=== PATIENT | female | born 1985 | race Two or more races ===

== ENCOUNTER 2025-02-14 23:01 | Emergency (ER) | payer MEDICAID, OTHER ==
[~2025-02-14] VITALS: Ht 175.3 cm; Wt 97.2 kg
--- NOTE | 2025-02-14 23:52 | ED.PDOC ---
History of Present Illness HPI Comments 39-year-old, obese female presents with daughter for chief complaint of nausea and vomiting. Patient endorses on sudden and unprovoked onset of symptoms, this afternoon, which has been persisting since. No reported abdominal pain, bloody or bilious vomitus, diarrhea, or further acute symptoms. Significant history for diabetes and DKA. Patient reports on her blood glucose levels being well managed, today. Chief Complaint: Nausea/Vomiting Time Seen by MD: 23:45 Reviewed Notes: Nurses Notes Allergies: Coded Allergies: NO KNOWN ALLERGIES (Unverified , 02/14/25) Home Meds Active Scripts Cefdinir (Cefdinir) 300 Mg Cap, 1 CAP PO BID for 7 Days, #14 CAP Prov:FER WHITMAN MD 02/15/25 Ondansetron HCl (Ondansetron Hydrochloride) 8 Mg Tab, 8 MG PO Q6HP PRN, #30 TAB Prov:FER WHITMAN MD 02/15/25 Information Source: Patient Mode of Arrival: Ambulatory Severity: Moderate Timing: Hours Duration: Since onset Prehospital treatment: None Past Medical History PAST MEDICAL HISTORY: DM Past Medical History (Other): DKA Surgical History: Denies all surgeries 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 Hx Family History Family History: Unknown Social History Smoker: Non-Smoker Alcohol: Denies ETOH Use Drugs: Denies Drug Use Lives In: Home All Other Systems: Reviewed and Negative (Comprehensive review of systems are negative unless otherwise stated in HPI) Physical Exam General Appearance: Mild Distress, Obese HEENT: Normal ENT Inspection, Pharynx Normal, TMs Normal Neck: Full Range of Motion, Non-Tender, Normal, Normal Inspection Respiratory: Chest Non-Tender, Lungs Clear, No Accessory Muscle Use, No Respiratory Distress, Normal Breath Sounds Cardiovascular: No Edema, No JVD, No Murmur, No Gallop, Normal Peripheral Pulses, Regular Rate/Rhythm Breast Exam: Deferred Gastrointestinal: No Organomegaly, Non Tender, No Pulsatile Mass, Normal Bowel Sounds, Soft Genitalia: Deferred Pelvic: Deferred Rectal: Deferred Extremities: No calf tenderness, Normal capillary refill, Normal inspection, Normal range of motion, Non-tender, No pedal edema Musculoskeletal : Apperance: Normal Neurologic: Alert, track dresser II-XII nml as Tested, No Motor Deficits, Normal Affect, Normal Mood, No Sensory Deficits Cerebellar Function: Normal Reflexes: Normal Skin: Dry, Normal Color, Warm Lymphatic: No Adenopathy Was a procedure done? Was a procedure done?: No Differential Dx Considerations may include: Gastritis, gastroenteritis, viral, spoiled food, , dehydration, electrolyte imbalance, among others X-Ray, Labs, Meds, VS Vital Signs Date Time Temp Pulse Resp B/P (MAP) Pulse Ox O2 Delivery O2 Flow Rate FiO2 02/15/25 03:40 98.5 98 18 150/89 (109) 99 98.5 02/15/25 00:26 98.4 104 16 143/94 (110) 98 98.4 02/14/25 23:18 98.4 97 18 112/80 97 98.4 Lab Test 02/15/25 00:22 02/15/25 00:08 02/14/25 23:59 Range/Units Urine Color Yellow Yellow Urine Clarity Turbid H Clear Urine pH 5.5 5.0-9.0 Urine Specific Allred 1.019 1.001-1.035 Urine Protein 2+ H Negative Urine Ketones 1+ H Negative Urine Blood 2+ H Negative /uL Urine Nitrite Negative Negative Urine Bilirubin Negative Negative Urine Urobilinogen Normal Negative mg/dL Urine Leukocyte Esterase Trace Negative /uL Urine RBC 3 0 - 4 /hpf Urine Microscopic WBC 20 H 0-5 /HPF Urine Squamous Epithelial Cells Few <5 /hpf Urine Bacteria Mod H None Seen /hpf Urine Mucus Few None Seen Urine Glucose Normal Normal mg/dL Blood Gas Specimen Type Venous Blood Gas Sample Site Vbg - n/a Blood Gas Patient Temperature 37.0 Arterial Blood Date Drawn [id number] Dima Test N/a Venous Blood pH 7.376 7.320-7.430 Venous Blood pCO2 at Patient Temp 48.2 38.0-54.0 mmHg Venous Blood pO2 at Patient Temp < 36.5 23.0-48.0 mmHg Venous Blood HCO3 27.6 22.0-29.0 mmol/L Venous Blood Base Excess 1.7 -2.0-3.0 mmol/L Blood Gas Modality Room air FiO2 % 21.0 Blood Gas Notified Time [id number] White Blood Count 10.6 4.4-10.8 10^3/uL Red Blood Count 5.28 H 4.0-5.20 10^6/uL Hemoglobin 14.3 12.2-16.2 g/dL Hematocrit 43.4 36.0-46.0 % Mean Corpuscular Volume 82.3 80.0-100.0 fL Mean Corpuscular Hemoglobin 27.1 L 28.0-32.0 pg Mean Corpuscular Hemoglobin Concent 32.9 32.0-36.0 g/dL Red Cell Distribution Width 16.1 H 11.8-14.3 % Platelet Count 342 140-450 10^3/uL Mean Platelet Volume 9.0 6.9-10.8 fL Neutrophils (%) (Auto) 78.9 37.0-80.0 % Lymphocytes (%) (Auto) 15.2 10.0-50.0 % Monocytes (%) (Auto) 5.1 0.0-12.0 % Eosinophils (%) (Auto) 0.2 0.0-7.0 % Basophils (%) (Auto) 0.6 0.0-2.0 % Neutrophils # (Auto) 8.4 1.6-8.6 10 ^3/uL Lymphocytes # (Auto) 1.6 0.4-5.4 10 ^3/uL Monocytes # (Auto) 0.5 0-1.3 10 ^3/uL Eosinophils # (Auto) 0 0-0.8 10 ^3/uL Basophils # (Auto) 0.1 0-0.2 10 ^3/uL Nucleated Red Blood Cells 0.1 % Sodium Level 139 136-145 mmol/L Potassium Level 4.6 3.5-5.1 mmol/L Chloride Level 104 98-107 mmol/L Carbon Dioxide Level 26 20-31 mmol/L Anion Gap 9 5-15 Blood Urea Nitrogen 16 9-23 mg/dL Creatinine 0.93 0.550-1.02 mg/dL Glomerular Filtration Rate Calc 81 >90 mL/min BUN/Creatinine Ratio 17.2 10.0-20.0 Serum Glucose 142 H 74-106 mg/dL Calcium Level 9.6 8.7-10.4 mg/dL Magnesium Level 2.0 1.6-2.6 mg/dL Total Bilirubin 0.8 0.2-1.0 mg/dL Aspartate Amino Transferase (AST) 76 H 13-40 U/L Alanine Aminotransferase (ALT) 134 H 7-40 U/L Alkaline Phosphatase 150 H 46-116 U/L Total Protein 7.7 5.7-8.2 g/dL Albumin 4.3 3.2-4.8 g/dL Current Medications Medications (Trade) Dose Ordered Sig/Kaylee Route Start Time Stop Time Status Last Admin Sodium Chloride 1,000 ml @ 1,000 mls/hr Q1H ONCE IV 02/15/25 00:00 02/15/25 00:59 DC 02/15/25 00:35 Ondansetron HCl (Zofran) 4 mg ONCE ONCE IV 02/15/25 00:00 02/15/25 00:01 DC 02/15/25 00:37 Ketorolac Tromethamine (Toradol Injection) 30 mg ONCE ONCE IV 02/15/25 00:45 02/15/25 00:46 DC 02/15/25 00:38 Ceftriaxone Sodium 50 ml @ 100 mls/hr ONCE ONCE IV 02/15/25 03:30 02/15/25 03:59 DC 02/15/25 03:41 Time of 1ST Reevaluation: 00:15 Reevaluation 1ST: Unchanged Patient Education/Counseling: Diagnosis, Treatment, Need For Follow Up Family Education/Counseling: Diagnosis, Treatment, Need For Follow Up SEPSIS Sepsis Screen Date sepsis recognized/suspect: Feb 14, 2025 Time Sepsis recognized/suspect: 2320 Recent Procedure: No On Antibiotic Therapy: No Respiratory Rate >20: No Heart Rate >90: Yes Temp<36 C (96.8 F) or >38.3 C: No SBP <90 or MAP <65 mmHG: No New Acute Mental Status Change: No Is the patient on CPAP, BIPAP,: No Physician Orders Venous Blood Gas (02/14/25 23:53) Vital Signs Date Time Temp Pulse Resp B/P (MAP) Pulse Ox O2 Delivery O2 Flow Rate FiO2 02/15/25 03:40 98.5 98 18 150/89 (109) 99 98.5 02/15/25 00:26 98.4 104 16 143/94 (110) 98 98.4 02/14/25 23:18 98.4 97 18 112/80 97 98.4 Laboratory Tests Test 02/14/25 23:59 White Blood Count 10.6 10^3/uL (4.4-10.8) Medications Medications Dose Ordered Sig/Kaylee Route Start Time Stop Time Status Last Admin Dose Admin Ceftriaxone Sodium 50 ml @ 100 mls/hr ONCE ONCE IV 02/15/25 03:30 02/15/25 03:59 DC 02/15/25 03:41 Ketorolac Tromethamine 30 mg ONCE ONCE IV 02/15/25 00:45 02/15/25 00:46 DC 02/15/25 00:38 Ondansetron HCl 4 mg ONCE ONCE IV 02/15/25 00:00 02/15/25 00:01 DC 02/15/25 00:37 Sodium Chloride 1,000 ml @ 1,000 mls/hr Q1H ONCE IV 02/15/25 00:00 02/15/25 00:59 DC 02/15/25 00:35 Departure 1 Departure Time of Disposition: 02:00 Impression: Primary Impression: Nausea & vomiting Additional Impressions: UTI (urinary tract infection) Controlled type 2 diabetes mellitus Disposition: HOME / SELF CARE / HOMELESS Condition: Stable e-Prescriptions Cefdinir (Cefdinir) 300 Mg Cap 1 CAP PO BID for 7 Days, #14 CAP Prov: FER WHITMAN MD 02/15/25 Ondansetron HCl (Ondansetron Hydrochloride) 8 Mg Tab 8 MG PO Q6HP PRN, #30 TAB Prov: FER WHITMAN MD 02/15/25 Discharged With: Relative Critical Care Note Critical Care Time?: No Stability Stability form required: No Heart Score Heart Score: Heart Score Response (Comments) Value History N/A 0 EKG N/A 0 Age N/A 0 Risk Factors N/A 0 Troponin N/A 0 Total 0 I personally scribed for FER WHITMAN MD ([email or web address]) on 02/14/25 at 23:52. Electronically submitted by Federico Thomas ([email or web address]). FER WHITMAN MD Feb 14, 2025 23:52
[2025-02-15 00:24] LABS: Hematocrit 43.4 % (36.0-46.0); Hemoglobin 14.3 g/dL (12.2-16.2); Mean Corpuscular Hemoglobin 27.1 pg (28.0-32.0); Mean Corpuscular Volume 82.3 fL (80.0-100.0); Nucleated Red Blood Cells % 0.1 %
[2025-02-15] MEDS: SODIUM CHLORIDE 0.9% 1,000 ML IV ONE (00:35)
[2025-02-15] MEDS: ONDANSETRON HCL 4 MG/2 ML VIAL IV ONE (00:37)
[2025-02-15] MEDS: KETOROLAC TROMETH 30 MG/ML 1ML VIAL IV ONE (00:38)
[2025-02-15 00:41] LABS: Albumin 4.3 g/dL (3.2-4.8); Anion Gap 9 (5-15); BUN/Creatinine Ratio 17.2 (10.0-20.0); Bilirubin, Total 0.8 mg/dL (0.2-1.0); Blood Urea Nitrogen 16 mg/dL (9-23); Calcium 9.6 mg/dL (8.7-10.4); Carbon Dioxide 26 mmol/L (20-31); Chloride 104 mmol/L (98-107); Magnesium 2.0 mg/dL (1.6-2.6); Potassium 4.6 mmol/L (3.5-5.1); Sodium 139 mmol/L (136-145); Total Protein 7.7 g/dL (5.7-8.2)
[2025-02-15 00:44] LABS: Alanine Aminotransferase 134 U/L (7-40); Alkaline Phosphatase 150 U/L (46-116); Glucose 142 mg/dL (74-106)
[2025-02-15 02:12] LABS: Urine Protein, UAD 2+ (Negative)
[2025-02-15] MEDS ORDERED: ONDA-180 PO (03:20)
[2025-02-15] MEDS ORDERED: CEFD300C2 PO (03:21)
[2025-02-15 03:40] VITALS: BP 150/89; PULSE 98; RESP 18; TEMP 98.5; O2SAT 99
== END 2025-02-15 03:58 | disposition home or self-care (01) ==
LOC: ER 23:01
DX: N39.0 Urinary tract infection, site not specified (principal); R11.2 Nausea with vomiting, unspecified; E11.9 Type 2 diabetes mellitus without complications; Z98.890 Other specified postprocedural states
CPT/HCPCS: 36415; 36600; 80053; 81001; 82805; 83735; 85025; 96361; 96365; 96375; 99284; J0696; J1885; J2405; J7030